=== PATIENT | female | born 2000 | race African-American/Black ===

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

== ENCOUNTER 2019-05-06 22:19 | Emergency (ER) | payer OTHER ==
[~2019-05-06] VITALS: Ht 162.6 cm; Wt 53.5 kg
[~2019-05-06 22:19] MED LIST: DOCU-300 PO; LEVO750T2 PO
[2019-05-06 22:30] VITALS: BP 120/51
[2019-05-07 00:27] VITALS: BP 126/63
--- NOTE | 2019-05-07 00:28 | NUR ---
Patient discharged with v/s stable. Written and verbal after care instructions given and explained. Patient alert, oriented and verbalized understanding of instructions. Ambulatory with steady gait. All questions addressed prior to discharge. ID band removed. Patient advised to follow up with PMD. Rx of albuterol/motrin given. Patient educated on indication of medication including possible reaction and side effects. Opportunity to ask questions provided and answered.
== END 2019-05-07 00:28 | disposition home or self-care (01) ==
LOC: MED 22:19
DX: B34.9 Viral infection, unspecified (principal); Z79.899 Other long term (current) drug therapy
CPT/HCPCS: 87804; 99283